=== PATIENT | male | born 1970 | race African-American/Black ===

== ENCOUNTER 2018-02-04 22:17 | Emergency (ER) | payer OTHER ==
[2018-02-04 22:38] VITALS: BMI 30.4
[2018-02-04 23:06] LABS: BASO % 0.6 % (0-2.0); EOS % 3.5 % (0-4.5); HEMATOCRIT 52.8 % (35.4-49); HEMOGLOBIN 17.5 GM/dL (11.7-16.9); MCH 30.4 pg (25.7-33.7); MCHC 33.1 g/dl (32.0-35.9); MEAN CELL VOLUME 91.8 fl (80-96); MEAN PLT VOLUME 9.2 fl (7.5-11.1); MONO % 7.7 % (3.8-10.2); NEUT % 41.2 % (42.8-82.8); PLATELET COUNT 218 K/MM3 (134-434); RBC 5.75 M/mm3 (4.00-5.60); RDW 15.2 % (11.9-15.9); WHITE BLOOD COUNT 5.6 K/mm3 (4.0-10.0)
--- NOTE | 2018-02-04 23:14 | PDOC ---
History of Present Illness - General History Source: Patient, EMS - History of Present Illness Initial Comments: 02/04/18 23:56 The patient is a 47 year old male, with a significant past medical history of seizures and restless leg syndrome, who presents to the emergency department s/ p witnessed seizure. As per EMS, he was at work ([employer]) when he began to seize while sitting in a chair. EMS notes he had full body convulsions while in the chair. Patient was given Versed en route. Patient is a poor historian due to his medications but, can give the name of his neurologist. Allergies: NKA Neurologist: Dr. Roberts <Zoila Jin - Last Filed: 02/05/18 02:12> <Sammie Chávez - Last Filed: 02/05/18 02:16> - General Chief Complaint: Seizure Stated Complaint: SEIZURE Time Seen by Provider: 02/04/18 22:32 Past History <Zoila Jin - Last Filed: 02/05/18 02:12> - Past Medical History Seizures: Yes - Suicide/Smoking/Psychosocial Hx Smoking History: Never smoked Have you smoked in the past 12 months: No Information on smoking cessation initiated: No Drug/Substance Use Hx: No <Sammie Chávez - Last Filed: 02/05/18 02:16> - Past Medical History Allergies/Adverse Reactions: Allergies Allergy/AdvReac Type Severity Reaction Status Date / Time No Known Allergies Allergy Verified 02/04/18 22:42 Home Medications: Ambulatory Orders Albuterol Sulfate Inhaler - [Ventolin HFA Inhaler -] 2 inh IH Q6H #1 inh Divalproex *ER* [Depakote *ER* -] 750 mg PO TID 02/07/14 Gabapentin [Neurontin] 450 mg PO TID 02/07/14 predniSONE [Deltasone -] 40 mg PO DAILY #7 tablet 02/07/14 Review of Systems - Review of Systems Able to Perform ROS?: No Comments:: 02/04/18 23:57 Unable to preform ROS due to clinical condition. <Zoila Jin - Last Filed: 02/05/18 02:12> *Physical Exam - Vital Signs Last Vital Signs Temp Pulse Resp BP Pulse Ox 98.3 F 87 20 117/84 97 02/04/18 22:20 02/04/18 23:49 02/04/18 23:49 02/04/18 23:49 02/04/18 23:49 - Physical Exam Comments: 02/04/18 23:57 GENERAL: Somnolent. Able to answer questions. Well-appearing, well-nourished. No apparent distress. HEENT: Normocephalic, atraumatic. PERRL, EOM intact. CARDIOVASCULAR: Normal S1, S2. Regular rate and rhythm. PULMONARY: Clear to auscultation bilaterally. ABDOMEN: Soft, non-distended, non-tender. EXTREMITIES: Normal ROM in all four extremities. No gross deformities. SKIN: Warm, dry. No rash NEUROLOGICAL: ANO x2. <Zoila Jin - Last Filed: 02/05/18 02:12> - Vital Signs Last Vital Signs Temp Pulse Resp BP Pulse Ox 98.3 F 100 H 19 121/87 96 02/04/18 22:20 02/04/18 22:20 02/04/18 22:20 02/04/18 22:20 02/04/18 22:20 <Sammie Chávez - Last Filed: 02/05/18 02:16> ED Treatment Course - LABORATORY CBC & Chemistry Diagram: 02/04/18 23:00 02/04/18 23:00 - ADDITIONAL ORDERS Additional order review: Laboratory Results 02/04/18 02/04/18 02/04/18 23:00 23:00 23:00 PT with INR 11.50 INR 0.97 Sodium 139 Potassium 5.0 Chloride 105 Carbon Dioxide 27 Anion Gap 7 L BUN 13 Creatinine 1.1 Creat Clearance w eGFR > 60 Random Glucose 122 H Calcium 8.7 Total Bilirubin 0.3 AST 33 ALT 27 Alkaline Phosphatase 108 Creatine Kinase 182 Troponin I < 0.02 Total Protein 7.2 Albumin 3.4 Blood Type O POSITIVE Antibody Screen Negative 02/04/18 23:00 RBC 5.75 H MCV 91.8 MCHC 33.1 RDW 15.2 D MPV 9.2 Neutrophils % 41.2 L Lymphocytes % 47.0 H Monocytes % 7.7 Eosinophils % 3.5 Basophils % 0.6 <Zoila iJn - Last Filed: 02/05/18 02:12> - LABORATORY CBC & Chemistry Diagram: 02/04/18 23:00 02/04/18 23:00 - ADDITIONAL ORDERS Additional order review: 02/04/18 23:00 RBC 5.75 H MCV 91.8 MCHC 33.1 RDW 15.2 D MPV 9.2 Neutrophils % 41.2 L Lymphocytes % 47.0 H Monocytes % 7.7 Eosinophils % 3.5 Basophils % 0.6 - RADIOLOGY Radiology Studies Ordered: Category Date Time Status HEAD CT WITHOUT CONTRAST [CT] Stat CT Scan 02/04/18 22:33 Ordered CHEST X-RAY PORTABLE* [RAD] Stat Radiology 02/04/18 22:33 Ordered <Sammie Chávez - Last Filed: 02/05/18 02:16> Medical Decision Making - Medical Decision Making 02/05/18 01:27am Call placed to Dr. Roberts's answering service, made aware that Dr. Mcnamara covering, awaiting call back. 02:12am Second call placed to Dr. Mcnamara, awaiting call back. <Zoila Jin - Last Filed: 02/05/18 02:12> - Medical Decision Making 02/05/18 02:02 47-year-old male with a history of epilepsy had a witnessed seizure this evening. CAT scan of the head did not show any acute intracranial pathology, no bleed, but it did show an apparent posterior left parietal craniotomy. Patient said that 2002. 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 He's had presented to see nurse's 2013, but he states that he very often goes [facility] after having a seizure. 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 He had a witnessed tonic-clonic seizure according to paramedics. Currently, he is on Requip for restless leg syndrome, Depakote and Tegretol. Tegretol level is 5.5, which is within normal limits <Sammie Chávez - Last Filed: 02/05/18 02:16> *DC/Admit/Observation/Transfer - Attestations Scribe Attestion: 02/04/18 23:57 Documentation prepared by Zoila Jin, acting as medical sales associate for Sammie Chávez MD. <Zoila Jin - Last Filed: 02/05/18 02:12> <Sammie Chávez - Last Filed: 02/05/18 02:16> Diagnosis at time of Disposition: Epilepsy Qualifiers: Epilepsy type: other generalized Intractability: not intractable Status epilepticus: without status epilepticus Qualified Code(s): G40.409 - Other generalized epilepsy and epileptic syndromes, not intractable, without status epilepticus - Discharge Dispostion Condition at time of disposition: Improved - Referrals Referrals: Marco A Roberts MD [Staff Physician] - - Patient Instructions Printed Discharge Instructions: DI for Seizure Disorder -- Adult Additional Instructions: PLEASE FOLLOW UP WITH YOUR NEUROLOGIST AND CONTINUE TO TAKE YOUR MEDICATIONS DIRECTED
[2018-02-04 23:19] LABS: INR 0.97 (0.83-1.09); PROTHROMBIN TIME (PATIENT) 11.5 SEC (9.7-13.0)
[2018-02-04 23:38] LABS: ALBUMIN 3.4 g/dl (3.4-5.0); ALK PHOS 108 U/L (45-117); ANION GAP 7 MMOL/L (8-16); BILIRUBIN,TOTAL 0.3 mg/dL (0.2-1); BLOOD UREA NITROGEN 13 mg/dL (7-18); CALCIUM 8.7 mg/dL (8.5-10.1); CHLORIDE 105 mmol/L (98-107); CO2 27 mmol/L (21-32); CREATININE 1.1 mg/dL (0.55-1.3); GLUCOSE,RANDOM 122 mg/dL (74-106); SGPT/ALT 27 U/L (13-61); SODIUM 139 mmol/L (136-145); TOT PROT 7.2 g/dl (6.4-8.2)
[2018-02-04 23:39] LABS: SGOT/AST 33 U/L (15-37)
[2018-02-05] MEDS ORDERED: DIVALPROEX SODIUM 250 MG TABLET E.C. PO ONE (02:00)
[2018-02-05] MEDS ORDERED: DIVALPROEX SODIUM 500 MG TABLET E.C. ONE (02:17)
[2018-02-05] MEDS ORDERED: DIVALPROEX SODIUM 125 MG TABLET E.C. ONE (02:19)
--- NOTE | 2018-02-05 02:29 | PDOC ---
*Physical Exam - Vital Signs Last Vital Signs Temp Pulse Resp BP Pulse Ox 98.3 F 87 20 117/84 97 02/04/18 22:20 02/04/18 23:49 02/04/18 23:49 02/04/18 23:49 02/04/18 23:49 ED Treatment Course - LABORATORY CBC & Chemistry Diagram: 02/04/18 23:00 02/04/18 23:00 - ADDITIONAL ORDERS Additional order review: Laboratory Results 02/05/18 02/04/18 02/04/18 01: 23:00 23:00 PT with INR INR Sodium 139 Potassium 5.0 Chloride 105 Carbon Dioxide 27 Anion Gap 7 L BUN 13 Creatinine 1.1 Creat Clearance w eGFR > 60 Random Glucose 122 H Calcium 8.7 Total Bilirubin 0.3 AST 33 ALT 27 Alkaline Phosphatase 108 Creatine Kinase 182 Creatine Kinase Index 0.6 CK-MB (CK-2) 1.2 Troponin I < 0.02 Total Protein 7.2 Albumin 3.4 Carbamazepine 5.5 Blood Type O POSITIVE Antibody Screen Negative 02/04/18 23:00 PT with INR 11.50 INR 0.97 Sodium Potassium Chloride Carbon Dioxide Anion Gap BUN Creatinine Creat Clearance w eGFR Random Glucose Calcium Total Bilirubin AST ALT Alkaline Phosphatase Creatine Kinase Creatine Kinase Index CK-MB (CK-2) Troponin I Total Protein Albumin Carbamazepine Blood Type Antibody Screen 02/04/18 23:00 RBC 5.75 H MCV 91.8 MCHC 33.1 RDW 15.2 D MPV 9.2 Neutrophils % 41.2 L Lymphocytes % 47.0 H Monocytes % 7.7 Eosinophils % 3.5 Basophils % 0.6 - Medications Given in the ED: ED Medications Discontinued Medications Generic Name Dose Route Start Last Admin Trade Name Freq PRN Reason Stop Dose Admin Divalproex Sodium 750 mg 02/05/18 02:00 02/05/18 02:28 Depakote - PO 02/05/18 02:01 750 mg ONCE ONE Administration Medical Decision Making - Medical Decision Making 02/05/18 02:28 Patient Name: MEGHAN GAUTHIER THIS IS A PRELIMINARY REPORT FROM [facility] DATE OF SERVICE: 2018-02-04 23:50:51 IMAGES: 140 EXAM: HEAD CT WITHOUT CONTRAST HISTORY: Mental status changes and headache COMPARISON: None. FINDINGS: Status post posterior left parietal craniotomy. Just subjacent to the surgical site is a 1.7 x 1.1 cm partially calcified extra-axial mass, likely meningioma with a small amount of surrounding encephalomalacia no mass effect. The ventricular system is midline and nondilated. The sulcal pattern is normal for the patient's age. There is no bleed or extra-axial fluid collection No skull fracture or skull lesion is identified. Minimal right mastoid effusion likely represents mild mastoiditis. The visualized paranasal sinuses and left mastoid air cells are clear. IMPRESSION: 1.7 cm left posterior parietal meningioma with mild adjacent encephalomalacia, possibly related to recent surgery in this region, but without mass effect or hemorrhage. Mild right mastoiditis *DC/Admit/Observation/Transfer Diagnosis at time of Disposition: Epilepsy Qualifiers: Epilepsy type: other generalized Intractability: not intractable Status epilepticus: without status epilepticus Qualified Code(s): G40.409 - Other generalized epilepsy and epileptic syndromes, not intractable, without status epilepticus - Discharge Dispostion Disposition: HOME Condition at time of disposition: Improved Decision to Admit order: No - Referrals Referrals: Marco A Roberts MD [Staff Physician] - - Patient Instructions Printed Discharge Instructions: DI for Seizure Disorder -- Adult Additional Instructions: PLEASE FOLLOW UP WITH YOUR NEUROLOGIST AND CONTINUE TO TAKE YOUR MEDICATIONS DIRECTED - Post Discharge Activity Forms/Work/School Notes: Back to Work
[2018-02-05 02:41] LABS: URINE APPEARANCE CLEAR; URINE BILIRUBIN NEGATIVE (<2.0 mg/dL); URINE COLOR YELLOW; URINE GLUCOSE (UA) NEGATIVE (NEGATIVE); URINE KETONE TRACE (NEGATIVE); URINE LEUK ESTERASE NEGATIVE (NEGATIVE); URINE NITRITE NEGATIVE (NEGATIVE); URINE PROTEIN NEGATIVE (NEGATIVE); URINE UROBILINOGEN NEGATIVE mg/dL (0.2-1.0)
[2018-02-05 03:33] VITALS: BP 122/81; PULSE 85; TEMP 98.1
--- NOTE | 2018-02-05 09:43 | EKG ---
Test Reason : Blood Pressure : / mmHG Vent. Rate : 082 BPM Atrial Rate : 082 BPM P-R Int : 144 ms QRS Dur : 096 ms QT Int : 356 ms P-R-T Axes : 066 -34 -02 degrees QTc Int : 415 ms NORMAL SINUS RHYTHM LEFT AXIS DEVIATION MINIMAL VOLTAGE CRITERIA FOR LVH, MAY BE NORMAL VARIANT CANNOT RULE OUT SEPTAL INFARCT , AGE UNDETERMINED ABNORMAL ECG WHEN COMPARED WITH ECG OF 05-APR-2012 12:37, NO SIGNIFICANT CHANGE WAS FOUND Confirmed by RADHA LINDER MD ([id number]) on 02/05/2018 9:43:24 AM Referred By: Confirmed By:RADHA LINDER MD
== END 2018-02-05 03:40 | disposition home or self-care (01) ==
LOC: JER 22:17
DX: G40.409 Other generalized epilepsy and epileptic syndromes, not intractable, without status epilepticus (principal); G25.81 Restless legs syndrome
CPT/HCPCS: 36415; 70450-TC; 71045-TC-FY; 80053; 80156; 81003; 82550; 82553; 84484; 85025; 85610; 86850; 86900; 86901; 93005; 93010; 99282-25

== ENCOUNTER 2019-12-07 17:59 | Emergency (ER) | payer OTHER ==
[2019-12-07] MEDS ORDERED: LORazepam 2 MG/ML SDV VIAL ONE (18:15)
[2019-12-07] MEDS ORDERED: SODIUM CHLORIDE 1,000 ML IV STA (18:31)
[2019-12-07] MEDS ORDERED: ACETAMINOPHEN 1000 MG/100 ML VIAL (NON FORMULARY) IVPB ONE (18:31)
--- NOTE | 2019-12-07 18:36 | PDOC ---
Attending Attestation - Resident Resident Name: Monica eYung - ED Attending Attestation I have performed the following: I have examined & evaluated the patient, The case was reviewed & discussed with the resident, I agree w/resident's findings & plan, Exceptions are as noted - HPI HPI: 12/07/19 18:29 48y M hx of seizures, migraines, presents with complaint of seizures. Per patient, he was in his usual state of health until today when he had 3 seizures prior to arrival. Pt had an aura and felt his seizures coming and layd down. denies any trauma. he does note a headache after his first seizure which is consistent with his prior seizures. denies any prior headaches prior to his seizures. denies any fever/chills, n/v, vision changes, focal numbness/tingling/weakness, abd pain, cp, sob, back pain, neck pain. pt taking all of his medications. Neurologist: Dr. Roberts - Physicial Exam PE: 12/07/19 18:36 GENERAL: The patient is awake, alert, and fully oriented, Nontoxic - in no acute distress. HEAD: Normocephalic, atraumatic. EYES: extraocular movements intact, sclera anicteric, conjunctiva clear. ENT: Normal voice, Moist mucous membranes. NECK: Normal range of motion, supple LUNGS: Breath sounds equal, clear to auscultation bilaterally. No wheezes, no rhonchi, no rales. HEART: Regular rate and rhythm, normal S1 and S2 without murmur, rub or gallop. ABDOMEN: Soft, nontender, No guarding, no rebound. No CVA tenderness EXTREMITIES: Normal range of motion, no edema. NEUROLOGICAL: No facial assymetry, Normal speech, moving all 4 extremities spontaneously and symmetrically, sensation intact on all 4 extremities PSYCH: Normal mood, normal affect. SKIN: Warm, Dry, normal turgor, - Medical Decision Making 12/07/19 18:38 48y M hx of seizures presenting with multiple seizures, witnesed tonic clonic seizure here upon arrival lasting approx 30 seconds, with minimal post ictal period that resolved spontaneously - will obtain valproic acid levels will ck labs to r/o anemia, metabolic derangement, monitring, seizure precautions will dw neurology will continue to observe here 12/07/19 18:[address] Mcnamara - recommends increasing meds Discharge - Discharge Information Problems reviewed: Yes Clinical Impression/Diagnosis: Seizure Condition: Stable Disposition: HOME - Admission No - Additional Discharge Information Prescriptions: Divalproex *ER* [Depakote *ER* -] 1,000 mg PO BID #14 tab - Follow up/Referral Referrals: Marco A Roberts MD [Staff Physician] - Kerri Larios [Primary Care Provider] - CallBack Reminder: depakote - Patient Discharge Instructions Patient Printed Discharge Instructions: DI for Seizure Disorder -- Adult Additional Instructions: You were seen in the ED for complaints of seizure. In the ED you were evaluated with blood work and urinalysis. Your results were normal. There does not appear to be an acute need for immediate hospitalization. You are advised to follow up with your Neurologist, Dr. Roberts within 1 week. You were given a prescription for Depakote 1000mg 2x daily. Return to the ED immediately if you experience additional seizures. - Post Discharge Activity
--- NOTE | 2019-12-07 18:39 | PDOC ---
History of Present Illness - History of Present Illness Initial Comments: 12/07/19 18:28 HPI: 48 y/o M with hx of seizures and migraines presenting with multiple seizure episodes at home. Reports 3 unwitnessed seizures and then called sister who then called EMS. En route, patient was a&ox3 but EMS team reported right shoulder twitch and slurred speech. On arrival patient was witnessed to have another generalized convulsive seizure which broke on its own after he was stimulated by attending. Currently patient with clurred speech and SMITH which he reprots is normal after his siezures. He reports last seizure was 1 month ago and reports no new changes to his meds or daily routine. Denies fever, chills, chest pain, SOB, abd pain, n/v, dysuria, alcohol, other drugs, cough, URI symtpoms. States his seizures are exacerbated by excessive heat. 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 No weakness. HEAD, EYES, EARS, NOSE AND THROAT: No change in vision. No ear pain or discharge. No sore throat. CARDIOVASCULAR: No chest pain or shortness of breath RESPIRATORY: No cough, wheezing, or hemoptysis. GASTROINTESTINAL: No nausea, vomiting, diarrhea or constipation. GENITOURINARY: No dysuria, frequency, or change in urination. MUSCULOSKELETAL: No joint or muscle swelling or pain. No neck or back pain. SKIN: No rash NEUROLOGIC: +headache, seizure. ENDOCRINE: No increased thirst. No abnormal weight change HEMATOLOGIC/LYMPHATIC: No anemia, easy bleeding, or history of blood clots. ALLERGIC/IMMUNOLOGIC: No hives or skin allergy. PE: GENERAL: Awake, alert, and fully oriented, no acute distress HEAD: No signs of trauma, normocephalic, atraumatic EYES: EOMI, sclera anicteric, conjunctiva clear ENT: Auricles normal inspection, hearing grossly normal, nares patent, oropharynx clear without exudates. dry mucosa NECK: Normal ROM, no lymphadenopathy LUNGS: No increased work of breathing, symmetrical chest rise, clear to auscultation bilaterally, no wheezes, crackles or rhonchi HEART: Regular rate, regular rhythm, normal S1 and S2, no murmur, peripheral pulses 2+ and equal bilaterally. ABDOMEN: Soft, nondistended, nontender. No guarding, no rebound. No masses. No CVAT MUSCULOSKELETAL: FROM NEUROLOGICAL: Cranial nerves II through XII grossly intact. dysarthic speech with stutter and right shoulder twitch, stable gait, no focal sensorimotor deficits SKIN: Warm, Dry, normal turgor, no rashes or lesions noted <Monica Yeung - Last Filed: 12/07/19 19:16> <Lauri Dunlap - Last Filed: 12/08/19 07:50> - General Stated Complaint: SEIZURE Time Seen by Provider: 12/07/19 18:28 Past History - Medical History COPD: No Dialysis: No Seizures: Yes - Immunization History Immunization Up to Date: No - Psycho-Social/Smoking History Smoking History: Never smoked Have you smoked in the past 12 months: No <Monica Yeung - Last Filed: 12/07/19 19:16> <Lauri Dunlap - Last Filed: 12/08/19 07:50> - Medical History Allergies/Adverse Reactions: Allergies Allergy/AdvReac Type Severity Reaction Status Date / Time No Known Allergies Allergy Verified 12/07/19 18:43 Home Medications: Ambulatory Orders Divalproex *ER* [Depakote *ER* -] 750 mg PO BID 02/07/14 Carbamazepine [Tegretol -] 450 mg PO BID 09/27/19 Ropinirole HCl [Ropinirole ER] 10 mg PO DAILY 09/27/19 Divalproex *ER* [Depakote *ER* -] 1,000 mg PO BID #14 tab 12/07/19 *Physical Exam - Vital Signs Last Vital Signs Temp Pulse Resp BP Pulse Ox 97.9 F 72 20 120/74 100 12/07/19 18:44 12/07/19 18:44 12/07/19 18:44 12/07/19 18:44 12/07/19 18:44 <Lauri Dunlap - Last Filed: 12/08/19 07:50> ED Treatment Course - LABORATORY CBC & Chemistry Diagram: 12/07/19 18:50 12/07/19 18:50 <Monica Yeung - Last Filed: 12/07/19 19:16> - LABORATORY CBC & Chemistry Diagram: 12/07/19 18:50 12/07/19 18:50 - ADDITIONAL ORDERS Additional order review: Laboratory Results 12/07/19 12/07/19 12/07/19 20:30 20:30 18:50 Sodium 141 Potassium 3.7 Chloride 107 Carbon Dioxide 28 Anion Gap 7 L BUN 14.6 Creatinine 1.0 Est GFR (CKD-EPI)AfAm 104.15 Est GFR (CKD-EPI)NonAf 89.86 Random Glucose 105 Calcium 8.5 Magnesium 2.0 Total Bilirubin 0.2 AST 13 L ALT 15 Alkaline Phosphatase 83 Creatine Kinase 158 Creatine Kinase Index No Result Required. CK-MB (CK-2) < 1.0 Troponin I < 0.02 Total Protein 7.2 Albumin 3.6 Urine Color Yellow Urine Appearance Clear Urine pH 6.5 Ur Specific [place] 1.025 Urine Protein Negative Urine Glucose (UA) Negative Urine Ketones Trace H Urine Blood Negative Urine Nitrite Negative Urine Bilirubin Negative Urine Urobilinogen 1.0 Ur Leukocyte Esterase Negative Opiates Screen Negative Methadone Screen Negative Barbiturate Screen Negative Phencyclidine Screen Negative Ur Amphetamines Screen Negative MDMA (Ecstasy) Screen Negative Benzodiazepines Screen Negative Cocaine Screen Negative U Marijuana (THC) Screen Negative 12/07/19 18:50 RBC 5.11 MCV 91.3 MCHC 33.4 RDW 14.1 MPV 8.9 D Neutrophils % 40.0 L Lymphocytes % 49.3 H Monocytes % 9.6 Eosinophils % 0.9 D Basophils % 0.2 - Medications Given in the ED: ED Medications Discontinued Medications Generic Name Dose Route Start Last Admin Trade Name Hosea PRN Reason Stop Dose Admin Acetaminophen 1,000 mg 12/07/19 18:31 12/07/19 18:58 Ofirmev Injection - IVPB 12/07/19 18:32 1,000 mg ONCE ONE Administration Carbamazepine 450 mg 12/07/19 19:17 12/07/19 20:30 Tegretol - PO 12/07/19 19:18 450 mg ONCE ONE Administration Divalproex Sodium 1,000 mg 12/07/19 18:46 12/07/19 20:30 Depakote *Er* - PO 12/07/19 18:47 1,000 mg ONCE ONE Administration Sodium Chloride 1,000 mls @ 1,000 mls/hr 12/07/19 18:31 12/07/19 18:58 Normal Saline - IV 12/07/19 19:30 1,000 mls/hr ASDIR STA Administration <Lauri Dunlap - Last Filed: 12/08/19 07:50> Medical Decision Making - Medical Decision Making 12/07/19 19:12 48 y/o M with hx of seizures and migraines presenting with multiple seizure episodes at home with subsequent witnessed seizure in the ED which broke to stimulus. VSS, AF. PE with right shoulder twitch and dysarthria. DDx includes pseudo seizures, occult infection, undermedication -cbc, cmp, utox, ua, card prof, ekg, cxr, ct head, depakote -consulted with dr hector covering for dr garrett and recommending increasing depakote to 1000mg BID; will give dose in the ER and then increase home dose -signed out to night team to followup labs and imaging and DC vs admit pending results -will need urgent followup with neuro if DCd <Monica Yeung - Last Filed: 12/07/19 19:16> Discharge - Discharge Information Problems reviewed: Yes <Monica Yeung - Last Filed: 12/07/19 19:16> <Lauri Dunlap - Last Filed: 12/08/19 07:50> - Discharge Information Clinical Impression/Diagnosis: Seizure Condition: Stable Disposition: HOME - Additional Discharge Information Prescriptions: Divalproex *ER* [Depakote *ER* -] 1,000 mg PO BID #14 tab - Follow up/Referral Referrals: Marco A Garrett MD [Staff Physician] - Kerri Larios [Primary Care Provider] - CallBack Reminder: depakote - Patient Discharge Instructions Patient Printed Discharge Instructions: DI for Seizure Disorder -- Adult Additional Instructions: You were seen in the ED for complaints of seizure. In the ED you were evaluated with blood work and urinalysis. Your results were normal. There does not appear to be an acute need for immediate hospitalization. You are advised to follow up with your Neurologist, Dr. Garrett within 1 week. You were given a prescription for Depakote 1000mg 2x daily. Return to the ED immediately if you experience additional seizures. - Post Discharge Activity
[2019-12-07] MEDS ORDERED: DIVALPROEX NA *ER* EXTEND REL 500 MG TABLET.SA (FP) PO ONE (18:46)
[2019-12-07] MEDS ORDERED: ACETAMINOPHEN INJECTION 100 ML IVPB ONE (18:47)
--- NOTE | 2019-12-07 19:10 | PDOC ---
*Physical Exam - Vital Signs Last Vital Signs Temp Pulse Resp BP Pulse Ox 97.9 F 72 20 120/74 100 12/07/19 18:44 12/07/19 18:44 12/07/19 18:44 12/07/19 18:44 12/07/19 18:44 ED Treatment Course - LABORATORY CBC & Chemistry Diagram: 12/07/19 18:50 12/07/19 18:50 - RADIOLOGY Radiograph Interpretation: HCT: THIS IS A PRELIMINARY REPORT DATE OF SERVICE: 2019-12-07 21:58:39 IMAGES: 235 EXAM: HEAD CT WITHOUT CONTRAST HISTORY: Multiple seizures COMPARISON: Head CT 02/04/18 FINDINGS: Left posterior parietal craniotomy is again noted with underlying extra-axial calcified nodule likely a calcified meningioma with small amount of overlying encephalomalacia. No change from previous exam No intra or extra-axial hemorrhage or collection. No midline shift. Normal sims white matter differentiation. The ventricles are not enlarged and are symmetric and midline in position. No skull fractures or lesions. Incidental hyperostosis of the frontal and parietal calvaria again noted The visualized paranasal sinuses and mastoid air cells are clear. One or more of the following dose reduction techniques were used: automated exposure control, adjustment of the mA and/or kV according to patient size, use of iterative reconstructive technique. THIS DOCUMENT HAS BEEN ELECTRONICALLY SIGNED Bucky Hubbard MD 12/07/2019 23:14 EST - Medications Given in the ED: ED Medications Discontinued Medications Generic Name Dose Route Start Last Admin Trade Name Freq PRN Reason Stop Dose Admin Acetaminophen 1,000 mg 12/07/19 18:31 12/07/19 18:58 Ofirmev Injection - IVPB 12/07/19 18:32 1,000 mg ONCE ONE Administration Medical Decision Making - Medical Decision Making 12/07/19 19:12 48 y/o M with hx of seizures and migraines presenting with multiple seizure episodes at home with subsequent witnessed seizure in the ED which broke to stimulus. VSS, AF. PE with right shoulder twitch and dysarthria. DDx includes pseudo seizures, occult infection, undermedication -cbc, cmp, utox, ua, card prof, ekg, cxr, ct head, depakote -consulted with dr hector covering for dr garrett and recommending increasing depakote to 1000mg BID; will give dose in the ER and then increase home dose -signed out to night team to followup labs and imaging and DC vs admit pending results -will need urgent followup with neuro if DCd 12/07/19 19:22 sign out from day team Labs remarkable for: -CBC wnl -CMP wnl -Trop neg -UA wnl -tox screen negative -depakote level Head CT: negative -Increase depakote to 1000mg BID -pt stable for d/c, advised to follow up with Dr. Garrett within 1 week Discharge - Discharge Information Problems reviewed: Yes Clinical Impression/Diagnosis: Seizure Condition: Stable Disposition: HOME - Admission No - Additional Discharge Information Prescriptions: Divalproex *ER* [Depakote *ER* -] 1,000 mg PO BID #14 tab - Follow up/Referral Referrals: Kerri Larios [Primary Care Provider] - Marco A Garrett MD [Staff Physician] - CallBack Reminder: [email or web address] - Patient Discharge Instructions Patient Printed Discharge Instructions: DI for Seizure Disorder -- Adult Additional Instructions: You were seen in the ED for complaints of seizure. In the ED you were evaluated with blood work and urinalysis. Your results were normal. There does not appear to be an acute need for immediate hospitalization. You are advised to follow up with your Neurologist, Dr. Garrett within 1 week. You were given a prescription for Depakote 1000mg 2x daily. Return to the ED immediately if you experience additional seizures. - Post Discharge Activity
[2019-12-07 19:12] LABS: BASO % 0.2 % (0-2.0); EOS % 0.9 % (0-4.5); HEMATOCRIT 46.7 % (35.4-49); HEMOGLOBIN 15.6 GM/dL (11.7-16.9); LYMPH % 49.3 % (8-40); MCH 30.5 pg (25.7-33.7); MCHC 33.4 g/dl (32.0-35.9); MEAN CELL VOLUME 91.3 fl (80-96); MEAN PLT VOLUME 8.9 fl (7.5-11.1); MONO % 9.6 % (3.8-10.2); PLATELET COUNT 196 K/MM3 (134-434); RBC 5.11 M/mm3 (4.00-5.60); RDW 14.1 % (11.9-15.9); WHITE BLOOD COUNT 6.5 K/mm3 (4.0-10.0)
[2019-12-07] MEDS ORDERED: carBAMazepine 200 MG TABLET PO ONE (19:17)
[2019-12-07 19:24] VITALS: BP 120/74; PULSE 72; TEMP 97.9; BMI 29.9
[2019-12-07 19:41] LABS: ALBUMIN 3.6 g/dl (3.4-5.0); ALK PHOS 83 U/L (45-117); ANION GAP 7 MMOL/L (8-16); BILIRUBIN,TOTAL 0.2 mg/dL (0.2-1); BLOOD UREA NITROGEN 14.6 mg/dL (7-18); CALCIUM 8.5 mg/dL (8.5-10.1); CHLORIDE 107 mmol/L (98-107); CO2 28 mmol/L (21-32); GLUCOSE,RANDOM 105 mg/dL (74-106); POTASSIUM 3.7 mmol/L (3.5-5.1); SGOT/AST 13 U/L (15-37); SGPT/ALT 15 U/L (13-61); SODIUM 141 mmol/L (136-145); TOT PROT 7.2 g/dl (6.4-8.2)
[2019-12-07] MEDS ORDERED: DIVALPROEX SODIUM 500 MG TABLET E.C. ONE (20:27)
[2019-12-07] MEDS ORDERED: carBAMazepine 200 MG TABLET ONE (20:27)
[2019-12-07 20:50] LABS: PH,URINE 6.5 (5.0-8.0); URINE APPEARANCE CLEAR; URINE BILIRUBIN NEGATIVE (NEGATIVE); URINE COLOR YELLOW; URINE GLUCOSE (UA) NEGATIVE (NEGATIVE); URINE KETONE TRACE (NEGATIVE); URINE LEUK ESTERASE NEGATIVE (NEGATIVE); URINE NITRITE NEGATIVE (NEGATIVE); URINE PROTEIN NEGATIVE (NEGATIVE)
[2019-12-07 21:09] LABS: COCAINE, UR NEGATIVE ng/ml (CUTOFF=300); OPIATES, URI NEGATIVE ng/ml (CUTOFF=300); PHENCYCLIDINE,URINE NEGATIVE ng/ml (CUTOFF=25); URINE BARBITURATES NEGATIVE ng/ml (CUTOFF=200)
[2019-12-07 21:19] LABS: METHADONE, UR NEGATIVE ng/ml (CUTOFF=300); URINE AMPHETAMINES NEGATIVE ng/ml (CUTOFF=500); URINE BENZODIAZEPINES NEGATIVE ng/ml (CUTOFF=200)
--- NOTE | 2019-12-08 11:59 | EKG ---
Test Reason : Blood Pressure : / mmHG Vent. Rate : 074 BPM Atrial Rate : 074 BPM P-R Int : 158 ms QRS Dur : 100 ms QT Int : 406 ms P-R-T Axes : 070 -22 -10 degrees QTc Int : 450 ms NORMAL SINUS RHYTHM LEFTWARD AXIS NONSPECIFIC ST ABNORMALITY Confirmed by SAMIR DE LA FUENTE MD ([id number]) on 12/08/2019 11:59:45 AM Referred By: Confirmed By:SAMIR DE LA FUENTE MD
== END 2019-12-07 23:51 | disposition home or self-care (01) ==
LOC: JER 17:59
PROC: 3E033NZ Introduction of Analgesics, Hypnotics, Sedatives into Peripheral Vein, Percutaneous Approach (ICD-10-PCS; principal; 2019-12-07)
PROC: 3E0337Z Introduction of Electrolytic and Water Balance Substance into Peripheral Vein, Percutaneous Approach (ICD-10-PCS; 2019-12-07)
DX: R56.9 Unspecified convulsions (principal)
CPT/HCPCS: 36415; 70450-TC; 71045-TC-FY; 80053; 80307; 81003; 82550; 82553; 83735; 84484; 85025; 87086; 93005; 93010; 96361; 96374; 99285-25; J0131

== ENCOUNTER 2022-03-09 13:19 | Emergency (ER) | payer OTHER ==
[2022-03-09 13:57] VITALS: RESP 18; TEMP 98.1; BMI 30.1
[2022-03-09 17:01] LABS: HEMATOCRIT 43.1 % (35.4-49); HEMOGLOBIN 14.2 GM/dL (11.7-16.9); MCH 31.4 pg (25.7-33.7); MCHC 32.9 g/dl (32.0-35.9); MEAN CELL VOLUME 95.5 fl (80-96); MEAN PLT VOLUME 7.1 fl (7.5-11.1); PLATELET COUNT 231 10^3/uL (134-434); RBC 4.51 M/mm3 (4.00-5.60); RDW 14.3 % (11.9-15.9); WHITE BLOOD COUNT 5.8 K/mm3 (4.0-10.0)
[2022-03-09 17:22] LABS: CHLORIDE 107 mmol/L (98-107); SODIUM 141 mmol/L (136-145)
[2022-03-09 17:25] LABS: ALBUMIN 3.5 g/dl (3.4-5.0); ANION GAP 8 MMOL/L (8-16); BLOOD UREA NITROGEN 13.8 mg/dL (7-18); CO2 25 mmol/L (21-32); GLUCOSE,RANDOM 98 mg/dL (74-106); MAGNESIUM 2.2 mg/dL (1.8-2.4)
[2022-03-09 17:28] LABS: CREATININE 0.8 mg/dL (0.55-1.3); PHOSPHOROUS 4.6 mg/dL (2.5-4.9); SGOT/AST 10 U/L (15-37); SGPT/ALT 21 U/L (13-61)
[2022-03-09 17:30] LABS: BILIRUBIN,TOTAL 0.1 mg/dL (0.2-1); TOT PROT 6.8 g/dl (6.4-8.2)
[2022-03-09 17:31] LABS: ALK PHOS 86 U/L (45-117)
[2022-03-09 17:32] LABS: ANISOCYTOSIS 0; MACROCYTOSIS 0
[2022-03-09] MEDS ORDERED: VALPROATE SODIUM 500 MG/5 ML VIAL IVPB ONE (18:36)
[2022-03-09] MEDS ORDERED: VALPROATE SODIUM 500 MG/5 ML VIAL ONE (19:07)
[2022-03-09 23:52] VITALS: BP 104/69; PULSE 76
== END 2022-03-10 00:01 ==
LOC: JER 13:19
PROC: 3E033GC Introduction of Other Therapeutic Substance into Peripheral Vein, Percutaneous Approach (ICD-10-PCS; principal; 2022-03-09)
DX: G40.89 Other seizures (principal)
CPT/HCPCS: 36415; 70450-TC; 71045-TC-FY; 80053; 80156; 80164; 80175; 80307; 83735; 84100; 85025; 93005; 93010; 99285-25

== ENCOUNTER 2022-03-21 12:30 | Emergency (ER) | payer OTHER ==
[2022-03-21 12:33] VITALS: PULSE 87; RESP 20; BMI 31.5
[2022-03-21 13:54] LABS: BASO % 0.3 % (0-2.0); EOS % 0.5 % (0-4.5); HEMATOCRIT 46.2 % (35.4-49); HEMOGLOBIN 15.1 GM/dL (11.7-16.9); LYMPH % 55.8 % (8-40); MCHC 32.6 g/dl (32.0-35.9); MEAN CELL VOLUME 95.1 fl (80-96); MEAN PLT VOLUME 7.9 fl (7.5-11.1); MONO % 10.7 % (3.8-10.2); NEUT % 32.7 % (42.8-82.8); PLATELET COUNT 231 10^3/uL (134-434); RBC 4.86 M/mm3 (4.00-5.60); RDW 13.9 % (11.9-15.9)
[2022-03-21 14:07] LABS: ALBUMIN 3.6 g/dl (3.4-5.0); BLOOD UREA NITROGEN 7.4 mg/dL (7-18); CALCIUM 9.5 mg/dL (8.5-10.1); MAGNESIUM 2.1 mg/dL (1.8-2.4)
[2022-03-21 14:10] LABS: CREATININE 0.7 mg/dL (0.55-1.3)
[2022-03-21 14:11] LABS: BILIRUBIN,TOTAL 0.1 mg/dL (0.2-1); TOT PROT 7.3 g/dl (6.4-8.2)
[2022-03-21 15:18] LABS: PH,URINE 7.5 (5.0-8.0); URINE APPEARANCE CLEAR; URINE BILIRUBIN NEGATIVE (NEGATIVE); URINE COLOR YELLOW; URINE GLUCOSE (UA) NEGATIVE (NEGATIVE); URINE KETONE NEGATIVE (NEGATIVE); URINE LEUK ESTERASE NEGATIVE (NEGATIVE); URINE NITRITE NEGATIVE (NEGATIVE); URINE PROTEIN NEGATIVE (NEGATIVE); URINE UROBILINOGEN 0.2 mg/dL (0.2-1.0)
[2022-03-21] MEDS ORDERED: lamoTRIgine 100 MG TABLET PO ONE (16:09)
[2022-03-21] MEDS ORDERED: lamoTRIgine 100 MG TABLET ONE (16:14)
[2022-03-21 20:02] VITALS: BP 108/70; TEMP 98.1
== END 2022-03-21 20:02 ==
LOC: JER 12:30
DX: R56.9 Unspecified convulsions (principal)
CPT/HCPCS: 36415; 70450-TC; 80053; 80156; 80164; 80175; 81003; 83735; 85025; 87086; 99284-25

== ENCOUNTER 2022-04-01 13:42 | Observation (INO) | payer OTHER ==
[2022-04-01 13:56] VITALS: BMI 30.7
[2022-04-01 15:35] LABS: BASO % 1.3 % (0-2.0); EOS % 0.5 % (0-4.5); HEMATOCRIT 43.7 % (35.4-49); HEMOGLOBIN 14.2 GM/dL (11.7-16.9); LYMPH % 50.7 % (8-40); MCH 30.7 pg (25.7-33.7); MCHC 32.5 g/dl (32.0-35.9); MEAN CELL VOLUME 94.2 fl (80-96); MEAN PLT VOLUME 7.3 fl (7.5-11.1); NEUT % 37.5 % (42.8-82.8); PLATELET COUNT 233 10^3/uL (134-434); RBC 4.64 M/mm3 (4.00-5.60); RDW 13.5 % (11.9-15.9); WHITE BLOOD COUNT 6.4 K/mm3 (4.0-10.0)
[2022-04-01 16:05] LABS: CALCIUM 8.6 mg/dL (8.5-10.1)
[2022-04-01 16:06] LABS: ALBUMIN 3.4 g/dl (3.4-5.0); BLOOD UREA NITROGEN 15.3 mg/dL (7-18)
[2022-04-01 16:09] LABS: CREATININE 0.8 mg/dL (0.55-1.3)
[2022-04-01 16:10] LABS: BILIRUBIN,TOTAL 0.2 mg/dL (0.2-1)
[2022-04-01] MEDS ORDERED: ACETAMINOPHEN 325 MG TABLET (FP) PO PRN (18:52)
[2022-04-01] MEDS: VALPROIC ACID 250 MG CAPSULE PO SCH (22:58)
[2022-04-01] MEDS: lamoTRIgine 100 MG TABLET PO SCH (22:58)
[2022-04-02] MEDS: VALPROIC ACID 250 MG CAPSULE PO SCH (06:11)
[2022-04-02] MEDS: lamoTRIgine 100 MG TABLET PO SCH ×3 (06:11→21:59)
[2022-04-02] MEDS: ENOXAPARIN NA (PORCINE) 40 MG/0.4 ML DISP.SYRIN SQ SCH (10:12)
[2022-04-02 10:58] LABS: HEMATOCRIT 43.5 % (35.4-49); HEMOGLOBIN 14.2 GM/dL (11.7-16.9); MCH 30.9 pg (25.7-33.7); MCHC 32.6 g/dl (32.0-35.9); MEAN CELL VOLUME 94.7 fl (80-96); MEAN PLT VOLUME 7.7 fl (7.5-11.1); PLATELET COUNT 257 10^3/uL (134-434); RBC 4.59 M/mm3 (4.00-5.60); RDW 13.4 % (11.9-15.9); WHITE BLOOD COUNT 5.3 K/mm3 (4.0-10.0)
[2022-04-02 11:14] LABS: CALCIUM 8.7 mg/dL (8.5-10.1)
[2022-04-02 11:15] LABS: BLOOD UREA NITROGEN 12.3 mg/dL (7-18)
[2022-04-02 11:18] LABS: CREATININE 0.9 mg/dL (0.55-1.3)
[2022-04-02] MEDS: DIVALPROEX SODIUM 500 MG TABLET E.C. PO SCH ×2 (13:06→22:00)
[2022-04-02 14:25] VITALS: RESP 18
[2022-04-02] MEDS: carBAMazepine XR 400 MG TAB.ER.12H PO SCH ×2 (14:48→22:00)
[2022-04-02] MEDS: MELATONIN 5 MG TABLETS PO PRN (22:00)
[2022-04-03] MEDS: carBAMazepine XR 400 MG TAB.ER.12H PO SCH ×3 (05:10→21:17)
[2022-04-03] MEDS: lamoTRIgine 100 MG TABLET PO SCH ×3 (05:10→21:16)
[2022-04-03 09:04] LABS: MCH 30.1 pg (25.7-33.7); MCHC 31.9 g/dl (32.0-35.9); MEAN CELL VOLUME 94.4 fl (80-96); MEAN PLT VOLUME 7.3 fl (7.5-11.1); PLATELET COUNT 268 10^3/uL (134-434); RBC 4.66 M/mm3 (4.00-5.60); RDW 13.2 % (11.9-15.9); WHITE BLOOD COUNT 5.9 K/mm3 (4.0-10.0)
[2022-04-03] MEDS ORDERED: LORazepam 2 MG/ML SDV VIAL IVPUSH ONE (09:10)
[2022-04-03] MEDS ORDERED: LORazepam 2 MG/ML SDV VIAL IVPUSH SCH (09:15)
[2022-04-03 09:30] LABS: CALCIUM 8.6 mg/dL (8.5-10.1)
[2022-04-03 09:31] LABS: BLOOD UREA NITROGEN 12.4 mg/dL (7-18)
[2022-04-03 09:34] LABS: CREATININE 0.9 mg/dL (0.55-1.3)
[2022-04-03] MEDS: ENOXAPARIN NA (PORCINE) 40 MG/0.4 ML DISP.SYRIN SQ SCH (10:10)
[2022-04-03] MEDS: DIVALPROEX SODIUM 500 MG TABLET E.C. PO SCH ×2 (10:10→21:16)
[2022-04-03] MEDS: MELATONIN 5 MG TABLETS PO PRN (21:16)
[2022-04-04] MEDS: lamoTRIgine 100 MG TABLET PO SCH ×3 (05:23→21:15)
[2022-04-04] MEDS: carBAMazepine XR 400 MG TAB.ER.12H PO SCH ×3 (05:23→21:18)
[2022-04-04] MEDS: DIVALPROEX SODIUM 500 MG TABLET E.C. PO SCH ×2 (09:58→21:19)
[2022-04-04] MEDS: ENOXAPARIN NA (PORCINE) 40 MG/0.4 ML DISP.SYRIN SQ SCH (10:04)
[2022-04-04] MEDS: MELATONIN 5 MG TABLETS PO PRN (21:15)
[2022-04-05] MEDS: LORazepam 2 MG/ML SDV VIAL IVPUSH SCH ×3 (02:14→02:16)
[2022-04-05] MEDS: lamoTRIgine 100 MG TABLET PO SCH ×2 (05:37→13:55)
[2022-04-05] MEDS: carBAMazepine XR 400 MG TAB.ER.12H PO SCH ×2 (05:37→13:56)
[2022-04-05 09:02] VITALS: BP 98/66; PULSE 68; TEMP 97.9
[2022-04-05] MEDS: ENOXAPARIN NA (PORCINE) 40 MG/0.4 ML DISP.SYRIN SQ SCH (10:54)
[2022-04-05] MEDS: DIVALPROEX SODIUM 500 MG TABLET E.C. PO SCH (10:54)
== END 2022-04-05 16:42 ==
LOC: JER 13:42 → JERBED 17:41 → J5S 22:25
PROVIDERS: ADMIT Internal Medicine; ATTEND Internal Medicine
PROC: 3E023GC Introduction of Other Therapeutic Substance into Muscle, Percutaneous Approach (ICD-10-PCS; principal; 2022-04-01)
DX: G40.909 Epilepsy, unspecified, not intractable, without status epilepticus (principal); Z86.73 Personal history of transient ischemic attack (TIA), and cerebral infarction without residual deficits; U07.1 COVID-19; F31.9 Bipolar disorder, unspecified; S06.9XAA Unspecified intracranial injury with loss of consciousness status unknown, initial encounter; X58.XXXA Exposure to other specified factors, initial encounter; Y93.9 Activity, unspecified; Y99.9 Unspecified external cause status; E66.8 Other obesity; Z68.30 Body mass index [BMI] 30.0-30.9, adult; Z88.8 Allergy status to other drugs, medicaments and biological substances; Y93.89 Activity, other specified; Y92.89 Other specified places as the place of occurrence of the external cause
CPT/HCPCS: 0241U-QW; 36415; 71045-TC-FY; 80048; 80053; 80156; 80164; 84484; 85025; 85027; 93005; 93010; 96372; 97116-GP; 97162-GP; 99285-25; G0378

== ENCOUNTER 2022-04-28 17:30 | Emergency (ER) | payer OTHER ==
[2022-04-28 18:04] VITALS: RESP 18; TEMP 98.1; BMI 30.7
[2022-04-28 18:59] LABS: BASO % 0.2 % (0-2.0); EOS % 0.8 % (0-4.5); HEMATOCRIT 44.1 % (35.4-49); HEMOGLOBIN 14.4 GM/dL (11.7-16.9); LYMPH % 48.8 % (8-40); MCH 30.4 pg (25.7-33.7); MCHC 32.7 g/dl (32.0-35.9); MEAN CELL VOLUME 92.9 fl (80-96); MEAN PLT VOLUME 7.5 fl (7.5-11.1); MONO % 10.6 % (3.8-10.2); NEUT % 39.6 % (42.8-82.8); PLATELET COUNT 222 10^3/uL (134-434); RBC 4.75 M/mm3 (4.00-5.60); RDW 13.9 % (11.9-15.9); URINE APPEARANCE CLOUDY; URINE BILIRUBIN NEGATIVE (NEGATIVE); URINE COLOR YELLOW; URINE GLUCOSE (UA) NEGATIVE (NEGATIVE); URINE KETONE TRACE (NEGATIVE); URINE LEUK ESTERASE NEGATIVE (NEGATIVE); URINE NITRITE NEGATIVE (NEGATIVE); URINE PROTEIN NEGATIVE (NEGATIVE); URINE UROBILINOGEN 0.2 mg/dL (0.2-1.0); WHITE BLOOD COUNT 5.7 K/mm3 (4.0-10.0)
[2022-04-28 19:12] LABS: ALBUMIN 3.6 g/dl (3.4-5.0); BLOOD UREA NITROGEN 10.7 mg/dL (7-18)
[2022-04-28 19:16] LABS: CREATININE 0.8 mg/dL (0.55-1.3)
[2022-04-28 19:17] LABS: BILIRUBIN,TOTAL 0.4 mg/dL (0.2-1)
[2022-04-28 21:10] VITALS: BP 110/80; PULSE 74
== END 2022-04-28 23:23 | disposition home or self-care (01) ==
LOC: JER 17:30
DX: G40.89 Other seizures (principal)
CPT/HCPCS: 0241U-QW; 36415; 71045-TC-FY; 80053; 80156; 80164; 80175; 81003; 84484; 85025; 87086; 93005; 93010; 99285-25

== ENCOUNTER 2022-04-29 11:18 | Emergency (ER) | payer OTHER ==
[2022-04-29 11:38] VITALS: BMI 30.7
[2022-04-29 17:26] VITALS: BP 115/78; TEMP 97.5
[2022-04-29 17:40] VITALS: PULSE 76; RESP 16
== END 2022-04-29 17:51 ==
LOC: JER 11:18
DX: R56.9 Unspecified convulsions (principal)
CPT/HCPCS: 70450-TC; 93005; 93010; 99284-25

== ENCOUNTER 2022-06-25 19:58 | Observation (INO) | payer OTHER ==
[2022-06-25 20:13] VITALS: BMI 30.1
[2022-06-25 21:39] LABS: HEMATOCRIT 42.6 % (35.4-49); HEMOGLOBIN 14.6 GM/dL (11.7-16.9); MCH 31.1 pg (25.7-33.7); MCHC 34.2 g/dl (32.0-35.9); MEAN CELL VOLUME 90.9 fl (80-96); MEAN PLT VOLUME 7.3 fl (7.5-11.1); PLATELET COUNT 230 10^3/uL (134-434); RBC 4.69 M/mm3 (4.00-5.60); WHITE BLOOD COUNT 7.2 K/mm3 (4.0-10.0)
[2022-06-25 22:03] LABS: CALCIUM 8.9 mg/dL (8.5-10.1)
[2022-06-25 22:04] LABS: ALBUMIN 3.6 g/dl (3.4-5.0)
[2022-06-25 22:08] LABS: BILIRUBIN,TOTAL 0.2 mg/dL (0.2-1); TOT PROT 7.2 g/dl (6.4-8.2)
[2022-06-25] MEDS ORDERED: PIPERACILLIN/TAZOB 4.5 GM 4.5 GM in DEXTROSE 5%-WATER 100 ML IVPB ONE (23:15)
[2022-06-25] MEDS ORDERED: AZITHROMYCIN IVPB 500 MG in DEXTROSE 5%-WATER - 250 ML IVPB ONE (23:15)
[2022-06-25] MEDS ORDERED: VANCOMYCIN 1 GM in D5W (PRE-DOCKED) 1,000 MG/250 ML (RESTRICTED TO ID ONLY IVPB ONE (23:15)
[2022-06-25] MEDS ORDERED: AZITHROMYCIN IVPB 500 MG/250 ML BAG IVPB ONE (23:36)
[2022-06-25] MEDS ORDERED: VANCOMYCIN/WATER FOR INJ (PEG) 1,000 MG/200 ML BAG IVPB ONE (23:36)
[2022-06-25] MEDS ORDERED: PIPERACILLIN/TAZOB 4.5 GM 4.5 GM/100 ML BAG IVPB ONE (23:36)
[2022-06-26] MEDS ORDERED: DIVALPROEX SODIUM 500 MG TABLET E.C. ONE ×2 (06:45→09:37)
[2022-06-26] MEDS: DIVALPROEX SODIUM 500 MG TABLET E.C. PO SCH ×2 (06:45→14:15)
[2022-06-26 07:47] LABS: HEMATOCRIT 41.6 % (35.4-49); MCH 30.6 pg (25.7-33.7); MCHC 33.6 g/dl (32.0-35.9); MEAN CELL VOLUME 90.9 fl (80-96); MEAN PLT VOLUME 7.3 fl (7.5-11.1); PLATELET COUNT 224 10^3/uL (134-434); RBC 4.57 M/mm3 (4.00-5.60); RDW 15.8 % (11.9-15.9); WHITE BLOOD COUNT 7.6 K/mm3 (4.0-10.0)
[2022-06-26 08:17] LABS: ALBUMIN 3.4 g/dl (3.4-5.0); BLOOD UREA NITROGEN 16.2 mg/dL (7-18); CALCIUM 8.8 mg/dL (8.5-10.1)
[2022-06-26 08:20] LABS: CREATININE 0.9 mg/dL (0.55-1.3); PHOSPHOROUS 4.4 mg/dL (2.5-4.9)
[2022-06-26 08:22] LABS: BILIRUBIN,TOTAL 0.3 mg/dL (0.2-1); TOT PROT 6.8 g/dl (6.4-8.2)
[2022-06-26 08:27] LABS: PH,URINE 5.5 (5.0-8.0); URINE APPEARANCE CLEAR; URINE BILIRUBIN NEGATIVE (NEGATIVE); URINE COLOR YELLOW; URINE GLUCOSE (UA) NEGATIVE (NEGATIVE); URINE KETONE NEGATIVE (NEGATIVE); URINE LEUK ESTERASE NEGATIVE (NEGATIVE); URINE NITRITE NEGATIVE (NEGATIVE); URINE PROTEIN NEGATIVE (NEGATIVE); URINE UROBILINOGEN 0.2 mg/dL (0.2-1.0)
[2022-06-26 09:07] LABS: ERYTHROCYTE SEDIMENTATION RATE 2 mm/hr (0-10)
[2022-06-26] MEDS: SODIUM CHLORIDE 1,000 ML IV SCH (09:35)
[2022-06-26] MEDS: PANTOPRAZOLE 20 MG TABLET PO SCH (09:35)
[2022-06-26] MEDS: ENOXAPARIN NA (PORCINE) 40 MG/0.4 ML DISP.SYRIN SQ SCH (09:35)
[2022-06-26] MEDS: carBAMazepine 100 MG TAB.CHEW PO SCH (09:35)
[2022-06-26] MEDS: lamoTRIgine 100 MG TABLET PO SCH (09:35)
[2022-06-26] MEDS ORDERED: PANTOPRAZOLE 20 MG TABLET PO ONE (09:37)
[2022-06-26] MEDS ORDERED: carBAMazepine 200 MG TABLET ONE (09:37)
[2022-06-26] MEDS ORDERED: lamoTRIgine 100 MG TABLET ONE (09:38)
[2022-06-26] MEDS ORDERED: ENOXAPARIN NA (PORCINE) 40 MG/0.4 ML DISP.SYRIN SQ ONE (09:38)
[2022-06-26] MEDS ORDERED: carBAMazepine 200 MG TABLET PO SCH (10:00)
[2022-06-26] MEDS: ALBUTEROL SO4 2.5/IPRATROPIUM 0.5 INH SOL 3 ML VIAL.NEB. NEB SCH ×2 (16:26→20:09)
[2022-06-26] MEDS ORDERED: ALBUTEROL SO4 2.5/IPRATROPIUM 0.5 INH SOL 3 ML VIAL.NEB. NEB ONE ×2 (16:38→20:05)
[2022-06-27] MEDS ORDERED: carBAMazepine 200 MG TABLET ONE ×2 (05:15→08:54)
[2022-06-27] MEDS ORDERED: DIVALPROEX SODIUM 500 MG TABLET E.C. ONE (05:15)
[2022-06-27] MEDS ORDERED: lamoTRIgine 100 MG TABLET ONE ×2 (05:16→08:54)
[2022-06-27] MEDS: lamoTRIgine 100 MG TABLET PO SCH ×3 (05:29→22:58)
[2022-06-27] MEDS: DIVALPROEX SODIUM 500 MG TABLET E.C. PO SCH ×4 (05:29→22:58)
[2022-06-27] MEDS: AMITRIPTYLINE HCL 50 MG TABLET PO SCH (05:29)
[2022-06-27] MEDS: carBAMazepine 100 MG TAB.CHEW PO SCH ×3 (05:30→22:59)
[2022-06-27] MEDS: rOPINIRole HCL 2 MG TABLET (FP) PO SCH (05:30)
[2022-06-27] MEDS ORDERED: ALBUTEROL SO4 2.5/IPRATROPIUM 0.5 INH SOL 3 ML VIAL.NEB. NEB ONE ×3 (07:42→15:15)
[2022-06-27] MEDS: ALBUTEROL SO4 2.5/IPRATROPIUM 0.5 INH SOL 3 ML VIAL.NEB. NEB SCH ×4 (07:48→19:43)
[2022-06-27] MEDS: SODIUM CHLORIDE 1,000 ML IV SCH (07:48)
[2022-06-27] MEDS ORDERED: ENOXAPARIN NA (PORCINE) 40 MG/0.4 ML DISP.SYRIN SQ ONE (08:54)
[2022-06-27] MEDS ORDERED: PANTOPRAZOLE 20 MG TABLET PO ONE (08:54)
[2022-06-27] MEDS: PANTOPRAZOLE 20 MG TABLET PO SCH (10:11)
[2022-06-27] MEDS: ENOXAPARIN NA (PORCINE) 40 MG/0.4 ML DISP.SYRIN SQ SCH (10:11)
[2022-06-27] MEDS: LORazepam 2 MG/ML SDV VIAL IVPUSH PRN (14:03)
[2022-06-27 22:15] VITALS: RESP 18
[2022-06-28] MEDS: AMITRIPTYLINE HCL 50 MG TABLET PO SCH ×2 (02:10→22:37)
[2022-06-28] MEDS: rOPINIRole HCL 2 MG TABLET (FP) PO SCH ×2 (02:10→22:39)
[2022-06-28] MEDS: DIVALPROEX SODIUM 500 MG TABLET E.C. PO SCH ×3 (06:18→22:36)
[2022-06-28] MEDS: SODIUM CHLORIDE 1,000 ML IV SCH (06:18)
[2022-06-28] MEDS: lamoTRIgine 100 MG TABLET PO SCH ×3 (06:19→22:38)
[2022-06-28] MEDS: carBAMazepine 100 MG TAB.CHEW PO SCH ×3 (06:20→22:39)
[2022-06-28] MEDS: ALBUTEROL SO4 2.5/IPRATROPIUM 0.5 INH SOL 3 ML VIAL.NEB. NEB SCH ×4 (07:21→20:00)
[2022-06-28] MEDS: ENOXAPARIN NA (PORCINE) 40 MG/0.4 ML DISP.SYRIN SQ SCH (10:34)
[2022-06-28] MEDS: PANTOPRAZOLE 20 MG TABLET PO SCH (10:34)
[2022-06-28] MEDS: LORazepam 2 MG/ML SDV VIAL IVPUSH PRN (17:38)
[2022-06-28] MEDS ORDERED: LORazepam 2 MG/ML SDV VIAL IVPUSH ONE (17:41)
[2022-06-29] MEDS: DIVALPROEX SODIUM 500 MG TABLET E.C. PO SCH ×3 (06:03→21:33)
[2022-06-29] MEDS: carBAMazepine 100 MG TAB.CHEW PO SCH ×3 (06:03→21:33)
[2022-06-29] MEDS: lamoTRIgine 100 MG TABLET PO SCH ×3 (06:03→21:32)
[2022-06-29] MEDS: ALBUTEROL SO4 2.5/IPRATROPIUM 0.5 INH SOL 3 ML VIAL.NEB. NEB SCH ×5 (07:50→20:28)
[2022-06-29] MEDS: PANTOPRAZOLE 20 MG TABLET PO SCH (10:37)
[2022-06-29] MEDS: ENOXAPARIN NA (PORCINE) 40 MG/0.4 ML DISP.SYRIN SQ SCH (10:37)
[2022-06-29] MEDS: AMITRIPTYLINE HCL 50 MG TABLET PO SCH (21:33)
[2022-06-29] MEDS: rOPINIRole HCL 2 MG TABLET (FP) PO SCH (21:33)
[2022-06-29 23:30] VITALS: BP 130/72; PULSE 93; TEMP 98.4
== END 2022-06-29 23:15 ==
LOC: JER 19:58 → INTOOBSV 23:14 → JERBED 23:14 → J6S 06-27 15:59
PROVIDERS: ADMIT Internal Medicine; ATTEND Family Medicine
PROC: 3E03329 Introduction of Other Anti-infective into Peripheral Vein, Percutaneous Approach (ICD-10-PCS; principal; 2022-06-25)
PROC: 3E0F7GC Introduction of Other Therapeutic Substance into Respiratory Tract, Via Natural or Artificial Opening (ICD-10-PCS; 2022-06-25)
PROC: 3E023GC Introduction of Other Therapeutic Substance into Muscle, Percutaneous Approach (ICD-10-PCS; 2022-06-25)
DX: G40.909 Epilepsy, unspecified, not intractable, without status epilepticus (principal); J18.9 Pneumonia, unspecified organism; J45.909 Unspecified asthma, uncomplicated; J98.11 Atelectasis; F32.9 Major depressive disorder, single episode, unspecified; R55 Syncope and collapse; I10 Essential (primary) hypertension; G25.81 Restless legs syndrome
CPT/HCPCS: 0241U-QW; 36415; 70450-TC; 71045-TC-FY; 71250-TC; 80053; 80156; 80164; 80175; 81003; 82962; 83735; 84100; 84146; 85027; 85651; 86140; 87086; 93005; 93010; 94640; 96365; 96372; 96375; 99285-25; C9803-CS; G0378; U0003; U0005

== ENCOUNTER 2022-07-04 16:46 | Emergency (ER) | payer OTHER ==
[2022-07-04 17:19] VITALS: TEMP 97.6; BMI 30.7
[2022-07-04] MEDS ORDERED: lamoTRIgine 100 MG TABLET ONE (17:24)
[2022-07-04] MEDS ORDERED: ACETAMINOPHEN 325 MG TABLET (FP) PO ONE (17:26)
[2022-07-04] MEDS ORDERED: ACETAMINOPHEN 325 MG TABLET (FP) ONE (17:56)
[2022-07-04 18:17] LABS: BASO % 0.5 % (0-2.0); EOS % 0.9 % (0-4.5); HEMATOCRIT 43.2 % (35.4-49); HEMOGLOBIN 14.4 GM/dL (11.7-16.9); LYMPH % 50.8 % (8-40); MCH 30.2 pg (25.7-33.7); MCHC 33.4 g/dl (32.0-35.9); MEAN CELL VOLUME 90.4 fl (80-96); MEAN PLT VOLUME 7.3 fl (7.5-11.1); MONO % 7.8 % (3.8-10.2); PLATELET COUNT 256 10^3/uL (134-434); RBC 4.77 M/mm3 (4.00-5.60); RDW 15.7 % (11.9-15.9); WHITE BLOOD COUNT 6.4 K/mm3 (4.0-10.0)
[2022-07-04 18:22] LABS: PH,URINE 6.5 (5.0-8.0); URINE APPEARANCE CLEAR; URINE BILIRUBIN NEGATIVE (NEGATIVE); URINE COLOR YELLOW; URINE GLUCOSE (UA) NEGATIVE (NEGATIVE); URINE KETONE NEGATIVE (NEGATIVE); URINE LEUK ESTERASE NEGATIVE (NEGATIVE); URINE NITRITE NEGATIVE (NEGATIVE); URINE PROTEIN NEGATIVE (NEGATIVE); URINE UROBILINOGEN 0.2 mg/dL (0.2-1.0)
[2022-07-04 18:24] LABS: PROTHROMBIN TIME (PATIENT) 11.6 SEC (9.7-13.0)
[2022-07-04 18:26] LABS: ACTIVATED PTT 35.1 SECONDS (25.2-36.5)
[2022-07-04 18:39] LABS: ALBUMIN 3.5 g/dl (3.4-5.0); BLOOD UREA NITROGEN 13.8 mg/dL (7-18)
[2022-07-04 18:42] LABS: CREATININE 0.9 mg/dL (0.55-1.3)
[2022-07-04 18:44] LABS: BILIRUBIN,TOTAL 0.2 mg/dL (0.2-1); TOT PROT 7.2 g/dl (6.4-8.2)
[2022-07-05 02:03] VITALS: BP 118/68; PULSE 74; RESP 18
== END 2022-07-05 02:03 ==
LOC: JER 16:46
DX: R56.9 Unspecified convulsions (principal)
CPT/HCPCS: 36415; 80053; 80156; 80164; 80175; 81003; 83605; 85025; 85610; 85730; 87086; 93005; 93010; 99284-25

== ENCOUNTER 2023-01-16 12:30 | Observation (INO) | payer OTHER ==
[2023-01-16 14:52] LABS: INR 1.03 (0.83-1.09); PROTHROMBIN TIME (PATIENT) 11.9 SEC (9.7-13.0)
[2023-01-16 14:55] LABS: ACTIVATED PTT 19.9 SECONDS (25.2-36.5)
[2023-01-16 15:05] LABS: POTASSIUM 4.5 mmol/L (3.5-5.1)
[2023-01-16 15:06] LABS: CALCIUM 8.6 mg/dL (8.5-10.1)
[2023-01-16 15:07] LABS: ALBUMIN 3.8 g/dl (3.4-5.0)
[2023-01-16 15:08] LABS: BLOOD UREA NITROGEN 12.1 mg/dL (7-18)
[2023-01-16 15:10] LABS: CREATININE 0.8 mg/dL (0.55-1.3)
[2023-01-16 15:12] LABS: TOT PROT 7.7 g/dl (6.4-8.2)
[2023-01-16 15:13] LABS: BILIRUBIN,TOTAL 0.5 mg/dL (0.2-1)
[2023-01-16 16:40] LABS: BASO % 0.9 % (0-2.0); EOS % 0.1 % (0-4.5); HEMOGLOBIN 14.4 GM/dL (11.7-16.9); MCH 29.8 pg (25.7-33.7); MCHC 32.7 g/dl (32.0-35.9); MEAN CELL VOLUME 91.2 fl (80-96); MEAN PLT VOLUME 7.5 fl (7.5-11.1); MONO % 6.5 % (3.8-10.2); NEUT % 36.5 % (42.8-82.8); PLATELET COUNT 195 10^3/uL (134-434); RBC 4.82 M/mm3 (4.00-5.60); RDW 15.5 % (11.9-15.9); WHITE BLOOD COUNT 6.5 K/mm3 (4.0-10.0)
[2023-01-16] MEDS ORDERED: DIVALPROEX SODIUM 500 MG TABLET E.C. PO SCH ×2 (16:45→17:16)
[2023-01-16] MEDS ORDERED: carBAMazepine XR 400 MG TAB.ER.12H PO SCH ×2 (16:45→17:15)
[2023-01-16] MEDS ORDERED: carBAMazepine 200 MG TABLET ONE ×2 (17:00→22:12)
[2023-01-16] MEDS ORDERED: ALBUTEROL SO4 2.5/IPRATROPIUM 0.5 INH SOL 3 ML VIAL.NEB. NEB ONE (20:17)
[2023-01-16] MEDS: ALBUTEROL SO4 2.5/IPRATROPIUM 0.5 INH SOL 3 ML VIAL.NEB. NEB SCH (20:21)
[2023-01-16] MEDS ORDERED: AMITRIPTYLINE HCL 50 MG TABLET PO SCH (22:00)
[2023-01-16] MEDS ORDERED: HEPARIN NA (PORCINE) 5,000 UNITS/ML 1ML VIAL ONE (22:13)
[2023-01-16] MEDS ORDERED: lamoTRIgine 25 MG TABLET ONE ×2 (22:13→22:15)
[2023-01-16] MEDS ORDERED: levETIRAcetam 500 MG TABLET (FP) PO ONE (22:13)
[2023-01-16] MEDS ORDERED: ATORVASTATIN CA 20 MG TABLET (FP) ONE (22:15)
[2023-01-16] MEDS ORDERED: DIVALPROEX SODIUM 250 MG TABLET E.C. ONE (22:15)
[2023-01-16] MEDS: lamoTRIgine 25 MG TABLET PO SCH (22:22)
[2023-01-16] MEDS: ATORVASTATIN CA 20 MG TABLET (FP) PO SCH (22:22)
[2023-01-16] MEDS: carBAMazepine XR 200 MG TAB.ER.12H PO SCH (22:22)
[2023-01-16] MEDS: HEPARIN NA (PORCINE) 5,000 UNITS/ML 1ML VIAL SQ SCH (22:22)
[2023-01-16 22:32] LABS: URINE APPEARANCE CLEAR; URINE BILIRUBIN NEGATIVE (NEGATIVE); URINE COLOR YELLOW; URINE GLUCOSE (UA) NEGATIVE (NEGATIVE); URINE KETONE TRACE (NEGATIVE); URINE LEUK ESTERASE NEGATIVE (NEGATIVE); URINE NITRITE NEGATIVE (NEGATIVE); URINE PROTEIN NEGATIVE (NEGATIVE)
[2023-01-16] MEDS: AMITRIPTYLINE HCL 25 MG TABLET PO SCH (22:42)
[2023-01-16] MEDS: rOPINIRole HCL 1 MG TABLET (FP) PO SCH (22:42)
[2023-01-17] MEDS: carBAMazepine XR 200 MG TAB.ER.12H PO SCH ×3 (06:40→21:17)
[2023-01-17] MEDS ORDERED: ALBUTEROL SO4 2.5/IPRATROPIUM 0.5 INH SOL 3 ML VIAL.NEB. NEB ONE ×2 (07:32→20:54)
[2023-01-17] MEDS ORDERED: PANTOPRAZOLE 20 MG TABLET PO ONE (07:35)
[2023-01-17] MEDS: PANTOPRAZOLE 20 MG TABLET PO SCH (07:45)
[2023-01-17] MEDS: ALBUTEROL SO4 2.5/IPRATROPIUM 0.5 INH SOL 3 ML VIAL.NEB. NEB SCH ×4 (08:08→21:01)
[2023-01-17 08:11] LABS: HEMOGLOBIN 13.8 GM/dL (11.7-16.9); MCH 29.7 pg (25.7-33.7); MCHC 32.1 g/dl (32.0-35.9); MEAN CELL VOLUME 92.5 fl (80-96); MEAN PLT VOLUME 7.9 fl (7.5-11.1); PLATELET COUNT 183 10^3/uL (134-434); RBC 4.65 M/mm3 (4.00-5.60); RDW 15.8 % (11.9-15.9); WHITE BLOOD COUNT 5.8 K/mm3 (4.0-10.0)
[2023-01-17 08:23] LABS: POTASSIUM 3.8 mmol/L (3.5-5.1)
[2023-01-17 08:29] LABS: CALCIUM 8.1 mg/dL (8.5-10.1)
[2023-01-17 08:30] LABS: ALBUMIN 3.4 g/dl (3.4-5.0); BLOOD UREA NITROGEN 13.2 mg/dL (7-18); MAGNESIUM 2.1 mg/dL (1.8-2.4)
[2023-01-17 08:32] LABS: CREATININE 0.9 mg/dL (0.55-1.3)
[2023-01-17 08:33] LABS: TOT PROT 6.7 g/dl (6.4-8.2)
[2023-01-17 08:34] LABS: BILIRUBIN,TOTAL 0.3 mg/dL (0.2-1)
[2023-01-17 08:59] LABS: ANISOCYTOSIS 1+; MACROCYTOSIS 0
[2023-01-17] MEDS: lamoTRIgine 25 MG TABLET PO SCH ×2 (10:30→21:16)
[2023-01-17] MEDS: HEPARIN NA (PORCINE) 5,000 UNITS/ML 1ML VIAL SQ SCH ×2 (10:30→21:15)
[2023-01-17] MEDS: amLODIPine BESYLATE 5 MG TABLET (FP) PO SCH (10:57)
[2023-01-17 10:59] VITALS: RESP 18
[2023-01-17 18:44] VITALS: BMI 33.3
[2023-01-17] MEDS: rOPINIRole HCL 1 MG TABLET (FP) PO SCH (21:15)
[2023-01-17] MEDS: ATORVASTATIN CA 20 MG TABLET (FP) PO SCH (21:15)
[2023-01-17] MEDS: AMITRIPTYLINE HCL 25 MG TABLET PO SCH (21:16)
[2023-01-18] MEDS: carBAMazepine XR 200 MG TAB.ER.12H PO SCH (06:05)
[2023-01-18] MEDS: PANTOPRAZOLE 20 MG TABLET PO SCH (06:05)
[2023-01-18 06:26] VITALS: BP 96/56; PULSE 62; TEMP 97.9
[2023-01-18] MEDS: ALBUTEROL SO4 2.5/IPRATROPIUM 0.5 INH SOL 3 ML VIAL.NEB. NEB SCH (07:45)
[2023-01-18] MEDS: amLODIPine BESYLATE 5 MG TABLET (FP) PO SCH (09:09)
[2023-01-18] MEDS: HEPARIN NA (PORCINE) 5,000 UNITS/ML 1ML VIAL SQ SCH (09:09)
[2023-01-18] MEDS: lamoTRIgine 25 MG TABLET PO SCH (10:34)
[2023-01-18] MEDS ORDERED: DIVALPROEX SODIUM 500 MG TABLET E.C. PO SCH (14:00)
== END 2023-01-18 13:48 | disposition home or self-care (01) ==
LOC: JER 12:30 → JERBED 16:02 → J4W 01-17 14:19 → J5S 01-17 19:55
PROVIDERS: ADMIT Family Medicine; ATTEND Family Medicine
PROC: 3E0F7GC Introduction of Other Therapeutic Substance into Respiratory Tract, Via Natural or Artificial Opening (ICD-10-PCS; principal; 2023-01-16)
PROC: 3E023GC Introduction of Other Therapeutic Substance into Muscle, Percutaneous Approach (ICD-10-PCS; 2023-01-16)
DX: R06.00 Dyspnea, unspecified (principal); G43.909 Migraine, unspecified, not intractable, without status migrainosus; J45.909 Unspecified asthma, uncomplicated; R07.89 Other chest pain; R20.0 Anesthesia of skin; G40.909 Epilepsy, unspecified, not intractable, without status epilepticus; F31.9 Bipolar disorder, unspecified; I10 Essential (primary) hypertension; I69.954 Hemiplegia and hemiparesis following unspecified cerebrovascular disease affecting left non-dominant side; E86.0 Dehydration; Z87.820 Personal history of traumatic brain injury; F80.81 Childhood onset fluency disorder; R93.89 Abnormal findings on diagnostic imaging of other specified body structures; Z88.8 Allergy status to other drugs, medicaments and biological substances
CPT/HCPCS: 36415; 70450-TC; 70551-TC; 71045-TC-FY; 80053; 80061; 80156; 80175; 81003; 82550; 82553; 82962; 83036; 83735; 83880; 84443; 84484; 85025; 85610; 85730; 86850; 86900; 86901; 93005; 93010; 94640; 96372; 97116-GP; 97161-GP; 99285-25; G0378; J1644

== ENCOUNTER 2023-02-15 14:38 | Inpatient (IN) | payer OTHER ==
[2023-02-15 15:13] LABS: BASO % 0.9 % (0-2.0); EOS % 0.2 % (0-4.5); HEMATOCRIT 44.2 % (35.4-49); HEMOGLOBIN 15.1 GM/dL (11.7-16.9); LYMPH % 42.6 % (8-40); MCH 30.6 pg (25.7-33.7); MCHC 34.1 g/dl (32.0-35.9); MEAN CELL VOLUME 89.6 fl (80-96); MEAN PLT VOLUME 7.4 fl (7.5-11.1); MONO % 8.3 % (3.8-10.2); PLATELET COUNT 232 10^3/uL (134-434); RBC 4.93 M/mm3 (4.00-5.60); RDW 15.8 % (11.9-15.9); WHITE BLOOD COUNT 7.8 K/mm3 (4.0-10.0)
[2023-02-15 15:20] LABS: INR 1.09 (0.83-1.09); PROTHROMBIN TIME (PATIENT) 12.6 SEC (9.7-13.0)
[2023-02-15 15:23] LABS: ACTIVATED PTT 30.3 SECONDS (25.2-36.5)
[2023-02-15 15:33] LABS: POTASSIUM 3.8 mmol/L (3.5-5.1)
[2023-02-15 15:35] LABS: CALCIUM 9.2 mg/dL (8.5-10.1)
[2023-02-15 15:36] LABS: BLOOD UREA NITROGEN 10.1 mg/dL (7-18); MAGNESIUM 2.2 mg/dL (1.8-2.4)
[2023-02-15 15:40] LABS: TOT PROT 7.8 g/dl (6.4-8.2)
[2023-02-15 15:45] LABS: BILIRUBIN,TOTAL 0.2 mg/dL (0.2-1)
[2023-02-15] MEDS ORDERED: ENOXAPARIN NA (PORCINE) 40 MG/0.4 ML DISP.SYRIN SQ ONE (21:12)
[2023-02-15] MEDS ORDERED: lamoTRIgine 100 MG TABLET ONE (21:12)
[2023-02-15] MEDS ORDERED: DIVALPROEX SODIUM 500 MG TABLET E.C. ONE (21:12)
[2023-02-15] MEDS: rOPINIRole HCL 1 MG TABLET (FP) PO SCH (21:20)
[2023-02-15] MEDS: AMITRIPTYLINE HCL 25 MG TABLET PO SCH (21:20)
[2023-02-15] MEDS: ENOXAPARIN NA (PORCINE) 40 MG/0.4 ML DISP.SYRIN SQ SCH (21:20)
[2023-02-15] MEDS: carBAMazepine XR 400 MG TAB.ER.12H PO SCH (21:20)
[2023-02-15] MEDS: lamoTRIgine 100 MG TABLET PO SCH (21:20)
[2023-02-15] MEDS: DIVALPROEX SODIUM 500 MG TABLET E.C. PO SCH (21:20)
[2023-02-15 21:49] LABS: URINE APPEARANCE CLEAR; URINE BILIRUBIN NEGATIVE (NEGATIVE); URINE COLOR YELLOW; URINE GLUCOSE (UA) NEGATIVE (NEGATIVE); URINE KETONE TRACE (NEGATIVE); URINE LEUK ESTERASE NEGATIVE (NEGATIVE); URINE NITRITE NEGATIVE (NEGATIVE); URINE PROTEIN NEGATIVE (NEGATIVE); URINE UROBILINOGEN 0.2 mg/dL (0.2-1.0)
[2023-02-16 01:21] VITALS: BMI 31.7
[2023-02-16 07:33] LABS: HEMATOCRIT 41.5 % (35.4-49); HEMOGLOBIN 13.4 GM/dL (11.7-16.9); MCH 29.7 pg (25.7-33.7); MCHC 32.2 g/dl (32.0-35.9); MEAN PLT VOLUME 7.5 fl (7.5-11.1); PLATELET COUNT 220 10^3/uL (134-434); RBC 4.52 M/mm3 (4.00-5.60); RDW 15.3 % (11.9-15.9); WHITE BLOOD COUNT 7.1 K/mm3 (4.0-10.0)
[2023-02-16 07:37] LABS: POTASSIUM 3.8 mmol/L (3.5-5.1)
[2023-02-16 07:44] LABS: ALBUMIN 3.5 g/dl (3.4-5.0); CALCIUM 8.2 mg/dL (8.5-10.1); MAGNESIUM 2.3 mg/dL (1.8-2.4)
[2023-02-16 07:45] LABS: BLOOD UREA NITROGEN 10.1 mg/dL (7-18)
[2023-02-16 07:46] LABS: TOT PROT 6.5 g/dl (6.4-8.2)
[2023-02-16 07:47] LABS: BILIRUBIN,TOTAL 0.3 mg/dL (0.2-1); PHOSPHOROUS 3.6 mg/dL (2.5-4.9)
[2023-02-16 07:48] LABS: CREATININE 0.9 mg/dL (0.55-1.3)
[2023-02-16] MEDS: ENOXAPARIN NA (PORCINE) 40 MG/0.4 ML DISP.SYRIN SQ SCH (09:51)
[2023-02-16] MEDS: DIVALPROEX SODIUM 500 MG TABLET E.C. PO SCH ×2 (09:52→21:58)
[2023-02-16] MEDS: lamoTRIgine 100 MG TABLET PO SCH ×2 (09:52→21:58)
[2023-02-16] MEDS: carBAMazepine XR 400 MG TAB.ER.12H PO SCH ×2 (09:53→21:59)
[2023-02-16] MEDS ORDERED: levETIRAcetam 500 MG/5 ML INJECTION VIAL IVPB ONE (15:55)
[2023-02-16] MEDS: AMITRIPTYLINE HCL 25 MG TABLET PO SCH (21:58)
[2023-02-16] MEDS: rOPINIRole HCL 1 MG TABLET (FP) PO SCH (21:59)
[2023-02-17] MEDS ORDERED: amLODIPine BESYLATE 5 MG TABLET (FP) PO SCH (10:00)
[2023-02-17] MEDS: ENOXAPARIN NA (PORCINE) 40 MG/0.4 ML DISP.SYRIN SQ SCH (11:04)
[2023-02-17] MEDS: LACTULOSE 20 GM/30 ML UDC (FOR ORAL USE ONLY) PO SCH ×2 (11:05→21:38)
[2023-02-17] MEDS: DIVALPROEX SODIUM 500 MG TABLET E.C. PO SCH ×2 (11:05→21:39)
[2023-02-17] MEDS: lamoTRIgine 100 MG TABLET PO SCH ×2 (11:05→21:39)
[2023-02-17] MEDS: carBAMazepine XR 400 MG TAB.ER.12H PO SCH ×2 (11:10→21:38)
[2023-02-17] MEDS: AMITRIPTYLINE HCL 25 MG TABLET PO SCH (21:39)
[2023-02-17] MEDS: rOPINIRole HCL 1 MG TABLET (FP) PO SCH (21:39)
[2023-02-17] MEDS: ATORVASTATIN CA 20 MG TABLET (FP) PO SCH (23:11)
[2023-02-18 08:44] LABS: POTASSIUM 3.7 mmol/L (3.5-5.1)
[2023-02-18 08:51] LABS: ALBUMIN 3.2 g/dl (3.4-5.0); CALCIUM 8.2 mg/dL (8.5-10.1)
[2023-02-18 08:54] LABS: BILIRUBIN,TOTAL 0.5 mg/dL (0.2-1); CREATININE 0.9 mg/dL (0.55-1.3); TOT PROT 6.5 g/dl (6.4-8.2)
[2023-02-18] MEDS: DIVALPROEX SODIUM 500 MG TABLET E.C. PO SCH ×2 (09:27→22:13)
[2023-02-18] MEDS: ENOXAPARIN NA (PORCINE) 40 MG/0.4 ML DISP.SYRIN SQ SCH (09:27)
[2023-02-18] MEDS: LACTULOSE 20 GM/30 ML UDC (FOR ORAL USE ONLY) PO SCH ×2 (09:27→21:42)
[2023-02-18] MEDS: lamoTRIgine 100 MG TABLET PO SCH ×2 (09:27→21:41)
[2023-02-18] MEDS: carBAMazepine XR 400 MG TAB.ER.12H PO SCH ×2 (09:28→21:42)
[2023-02-18] MEDS: ATORVASTATIN CA 20 MG TABLET (FP) PO SCH (21:41)
[2023-02-18] MEDS: rOPINIRole HCL 1 MG TABLET (FP) PO SCH (21:41)
[2023-02-18] MEDS: AMITRIPTYLINE HCL 75 MG TABLET PO SCH (21:42)
[2023-02-19 07:58] LABS: BASO % 0.3 % (0-2.0); EOS % 0.3 % (0-4.5); HEMATOCRIT 41.9 % (35.4-49); HEMOGLOBIN 13.6 GM/dL (11.7-16.9); LYMPH % 56.3 % (8-40); MCH 29.5 pg (25.7-33.7); MCHC 32.4 g/dl (32.0-35.9); MEAN PLT VOLUME 7.5 fl (7.5-11.1); MONO % 7.6 % (3.8-10.2); NEUT % 35.5 % (42.8-82.8); PLATELET COUNT 215 10^3/uL (134-434); RBC 4.61 M/mm3 (4.00-5.60); RDW 15.4 % (11.9-15.9); WHITE BLOOD COUNT 7.9 K/mm3 (4.0-10.0)
[2023-02-19 08:17] LABS: POTASSIUM 3.8 mmol/L (3.5-5.1)
[2023-02-19 08:21] LABS: ALBUMIN 3.2 g/dl (3.4-5.0); BLOOD UREA NITROGEN 8.8 mg/dL (7-18); CALCIUM 8.1 mg/dL (8.5-10.1)
[2023-02-19 08:24] LABS: CREATININE 0.8 mg/dL (0.55-1.3)
[2023-02-19 08:26] LABS: BILIRUBIN,TOTAL 0.6 mg/dL (0.2-1); TOT PROT 6.5 g/dl (6.4-8.2)
[2023-02-19] MEDS: lamoTRIgine 100 MG TABLET PO SCH ×2 (10:16→21:38)
[2023-02-19] MEDS: carBAMazepine XR 400 MG TAB.ER.12H PO SCH ×2 (10:16→21:37)
[2023-02-19] MEDS: DIVALPROEX SODIUM 500 MG TABLET E.C. PO SCH ×2 (10:16→21:36)
[2023-02-19] MEDS: LACTULOSE 20 GM/30 ML UDC (FOR ORAL USE ONLY) PO SCH ×2 (10:17→21:36)
[2023-02-19] MEDS: ENOXAPARIN NA (PORCINE) 40 MG/0.4 ML DISP.SYRIN SQ SCH (10:17)
[2023-02-19] MEDS: AMITRIPTYLINE HCL 75 MG TABLET PO SCH (21:37)
[2023-02-19] MEDS: rOPINIRole HCL 1 MG TABLET (FP) PO SCH (21:37)
[2023-02-19] MEDS: ATORVASTATIN CA 20 MG TABLET (FP) PO SCH (21:38)
[2023-02-20] MEDS: LACTULOSE 20 GM/30 ML UDC (FOR ORAL USE ONLY) PO SCH ×2 (09:20→22:17)
[2023-02-20] MEDS: lamoTRIgine 100 MG TABLET PO SCH ×2 (09:20→22:17)
[2023-02-20] MEDS: ENOXAPARIN NA (PORCINE) 40 MG/0.4 ML DISP.SYRIN SQ SCH (09:20)
[2023-02-20] MEDS: DIVALPROEX SODIUM 500 MG TABLET E.C. PO SCH ×2 (09:20→22:15)
[2023-02-20] MEDS: carBAMazepine XR 400 MG TAB.ER.12H PO SCH ×2 (09:21→22:16)
[2023-02-20] MEDS: ATORVASTATIN CA 20 MG TABLET (FP) PO SCH (22:17)
[2023-02-20] MEDS: rOPINIRole HCL 1 MG TABLET (FP) PO SCH (22:17)
[2023-02-20] MEDS: AMITRIPTYLINE HCL 75 MG TABLET PO SCH (22:18)
[2023-02-21 05:56] VITALS: PULSE 69; RESP 18
[2023-02-21] MEDS: LACTULOSE 20 GM/30 ML UDC (FOR ORAL USE ONLY) PO SCH (09:22)
[2023-02-21] MEDS: ENOXAPARIN NA (PORCINE) 40 MG/0.4 ML DISP.SYRIN SQ SCH (09:22)
[2023-02-21] MEDS: lamoTRIgine 100 MG TABLET PO SCH (09:23)
[2023-02-21] MEDS: carBAMazepine XR 400 MG TAB.ER.12H PO SCH (09:23)
[2023-02-21 11:57] VITALS: BP 98/62; TEMP 97.5
[2023-02-21] MEDS: DIVALPROEX SODIUM 500 MG TABLET E.C. PO SCH (12:55)
== END 2023-02-21 15:30 | DRG 101 ==
LOC: JER 14:38 → JERBED 17:14 → OBSVTOIN 19:58 → J4S 21:33
PROVIDERS: ADMIT Internal Medicine; ATTEND Family Medicine
DX: G40.909 Epilepsy, unspecified, not intractable, without status epilepticus (principal); J98.11 Atelectasis; I69.354 Hemiplegia and hemiparesis following cerebral infarction affecting left non-dominant side; F31.9 Bipolar disorder, unspecified; J45.909 Unspecified asthma, uncomplicated; I10 Essential (primary) hypertension; G25.81 Restless legs syndrome; G43.909 Migraine, unspecified, not intractable, without status migrainosus; R45.1 Restlessness and agitation
CPT/HCPCS: 0241U-QW; 36415; 70450-TC; 71045-TC-FY; 80053; 80061; 80156; 80164; 80175; 81003; 82140; 82962; 83036; 83735; 84100; 84443; 85025; 85027; 85610; 85730; 86682; 87045; 87046; 95705; 97116-GP; 97162-GP; 99285-25; G0378

== ENCOUNTER 2023-04-15 00:25 | Emergency (ER) | payer OTHER ==
[2023-04-15 00:54] VITALS: BMI 27.8
[2023-04-15] MEDS ORDERED: FAMOTIDINE 20 MG TABLET PO ONE (03:45)
[2023-04-15] MEDS ORDERED: POLYETHYLENE GLYCOL (HEALTHYLAX) 3350 17 GM PACKET PO SCH (04:00)
[2023-04-15] MEDS ORDERED: FAMOTIDINE 20 MG TABLET ONE (04:10)
[2023-04-15] MEDS ORDERED: ONDANSETRON *ODT* 4 MG TABLET SL ONE (06:21)
[2023-04-15] MEDS ORDERED: ONDANSETRON *ODT* 4 MG TABLET ONE (06:29)
[2023-04-15 08:48] VITALS: RESP 18
[2023-04-15 12:22] VITALS: BP 148/92; PULSE 92; TEMP 98
== END 2023-04-15 12:22 | disposition home or self-care (01) ==
LOC: JER 00:25
DX: G40.909 Epilepsy, unspecified, not intractable, without status epilepticus (principal); R10.9 Unspecified abdominal pain
CPT/HCPCS: 36415; 80156; 80164; 80175; 93005; 93010; 99284-25; Q0162